=== PATIENT | male | born 1995 | race Caucasian/White ===

== ENCOUNTER 2017-05-10 11:58 | Emergency (ER) | payer OTHER ==
[2017-05-10 12:03] VITALS: BP 139/92; PULSE 92; RESP 16; TEMP 98.8; O2SAT 95
[2017-05-10] MEDS ORDERED: IBUPROFEN 600 MG TAB PO ONE (12:35)
--- NOTE | 2017-05-10 12:35 | EDPHY ---
H & P Time Seen by Provider: 05/10/17 12:20 HPI/ROS: CHIEF COMPLAINT: Sore throat HISTORY OF PRESENT ILLNESS: Sore throat for the past 3 days, worse with swallowing. He is able to tolerate oral liquids, just has trouble with food. No restriction of range of motion of the neck. No ear symptoms. Does have fever. No cough or runny nose. REVIEW OF SYSTEMS: Otherwise negative PAST MEDICAL HISTORY: Otherwise negative, previous strep throat = General Appearance: Alert and conversant, cooperative. Normal range of motion of the neck, no trismus. Bilateral tonsillar swelling with exudate but uvula midline. No angioedema. No extra work of breathing. Anterior cervical lymphadenopathy present. No meningeal signs. Normal tympanic membranes. Emergency Department course/MDM: Strep test positive. Treatment with amoxicillin, ibuprofen, increased oral fluids. Smoking Status: Never smoked Constitutional: Initial Vital Signs Temperature (C) 37.1 C 05/10/17 12:00 Heart Rate 92 05/10/17 12:00 Respiratory Rate 16 05/10/17 12:00 Blood Pressure 139/92 H 05/10/17 12:00 O2 Sat (%) 95 05/10/17 12:00 O2 Delivery Mode Room Air Allergies/Adverse Reactions: No Known Allergies Allergy (Unverified 05/10/17 12:00) Home Medications: Medication Instructions Recorded Amoxicillin Trihydrate 500 mg PO TID 7 Days cap 05/10/17 [Amoxicillin] MDM/Departure - Depart Disposition: Home, Routine, Self-Care Clinical Impression: Acute pharyngitis Qualifiers: Pharyngitis/tonsillitis etiology: streptococcus Qualified Code(s): J02.0 - Streptococcal pharyngitis Condition: Good Instructions: Strep Throat (ED) Prescriptions: Amoxicillin Trihydrate [Amoxicillin] 500 mg PO TID 7 Days cap Referrals: Wilfredo Ray MD [Medical Doctor] - 2-3 days, if not improved
== END 2017-05-10 12:53 | disposition home or self-care (01) ==
DX: J02.0 Streptococcal pharyngitis (principal)